=== PATIENT | female | born 1985 | race American Indian/Alaskan Native ===

== ENCOUNTER 2019-07-02 11:44 | Outpatient (CLI) | payer OTHER ==
[2019-07-02 12:56] VITALS: BP 99/56
[2019-07-02 13:31] LABS: Amphetamine Screen,Urine PRESUMPTIVE NEGATIVE; Bacteria,Urine 1+ /HPF (Negative); Bilirubin,Urine NEG (Negative); Blood,Urine NEG (Negative); Color,Urine Yellow (Yellow); Mucus,Urine 1+ /HPF; Protein,Urine <15 mg/dL mg/dL (Negative); Urobilinogen,Urine < 2.0 mg/dL (<2.0)
[2019-07-02 13:32] LABS: Benzodiazepines Screen,Urine PRESUMPTIVE NEGATIVE; Cocaine Screen,Urine PRESUMPTIVE NEGATIVE; Methadone Screen,Urine PRESUMPTIVE NEGATIVE; Opiate Screen,Urine PRESUMPTIVE NEGATIVE
[2019-07-02 13:34] LABS: HCG Qualitative,Urine Positive (Negative)
[2019-07-02 13:43] LABS: Cannabinoid Screen,Urine PRESUMPTIVE POSITIVE
--- NOTE | 2019-07-02 15:55 | Ultrasound Report ---
ULTRASOUND OBSTETRIC INDICATION / CLINICAL INFORMATION: No care.. Clinical Gestational Age (GA): TECHNIQUE: Transabdominal. COMPARISON: None available. FINDINGS: There is a single intrauterine . Biparietal Diameter = 5.5 cm = 22 weeks, 6 day(s). Head Circumference = 20.2 cm = 22 weeks, 6 day(s). Abdominal Circumference = 17.5 cm = 22 weeks, 3 day(s). Femur Length = 3.9 cm = 22 weeks, 5 day(s). Average Ultrasound Age (AUA) = 22 weeks, 5 day(s). Heart Rate: 158 beats per minute. Estimated Weight in grams (if calculated): 515 g Estimated Weight Growth Percentile (if calculated): Position: cephalic. Cervix: closed. Length in cm (if measured): Placenta: anterior and free of the os. Amniotic Fluid Volume: normal survey: Stomach, kidneys, urinary bladder, diaphragm, four-chamber heart, three-vessel cord were noted Maternal Adnexa: No significant abnormality. IMPRESSION: 1. Single, living intrauterine with estimated sonographic age of 22 weeks, 5 day(s). 2. Limited visualization of the spine. Signer Name: Hi Campoverde MD Signed: 07/02/2019 3:51 PM Workstation Name: [id number]
[2019-07-02 16:56] LABS: Basophils # (Auto) 0.1 K/mm3 (0.0-0.1); Basophils % (Auto) 0.5 % (0.0-1.8); Eosinophils # (Auto) 0.1 K/mm3 (0.0-0.4); Eosinophils % (Auto) 1.1 % (0.0-4.3); Hematocrit 32.2 % (30.3-42.9); Hemoglobin 10.6 gm/dl (10.1-14.3); Lymphocytes # (Auto) 2.2 K/mm3 (1.2-5.4); Lymphocytes % (Auto) 19.1 % (13.4-35.0); Mean Corpuscular HGB Conc 33 % (30-34); Mean Corpuscular Volume 88 fl (79-97); Monocytes # (Auto) 0.6 K/mm3 (0.0-0.8); Monocytes % (Auto) 5.7 % (0.0-7.3); Platelet Count 213 K/mm3 (140-440); Red Blood Count 3.65 M/mm3 (3.65-5.03)
[2019-07-02 17:29] LABS: Hepatitis C Virus Antibody Non-Reactive (NonReactive)
== END 2019-07-02 16:53 | disposition home or self-care (01) ==
LOC: ED 11:44 → TRG 12:22 → EDSTATUS 12:26 → TRG 12:29
PROVIDERS: ATTEND Obstetrics & Gynecology
DX: O26.892 Other specified pregnancy related conditions, second trimester (principal); R10.9 Unspecified abdominal pain; Z3A.22 22 weeks gestation of pregnancy
CPT/HCPCS: 36415; 76805; 80307; 81001; 81025; 85025; 86592; 86706; 86762; 86803; 87086; 87806

== ENCOUNTER 2020-01-26 09:47 | Emergency (ER) | payer MEDICAID, OTHER ==
[2020-01-26 10:09] VITALS: BP 107/73
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
== END 2020-01-26 15:26 | disposition home or self-care (01) ==
LOC: ED 09:47
DX: S39.012A Strain of muscle, fascia and tendon of lower back, initial encounter (principal); S16.1XXA Strain of muscle, fascia and tendon at neck level, initial encounter; R10.9 Unspecified abdominal pain; J45.909 Unspecified asthma, uncomplicated; Z79.899 Other long term (current) drug therapy; V49.49XA Driver injured in collision with other motor vehicles in traffic accident, initial encounter; Y92.410 Unspecified street and highway as the place of occurrence of the external cause; Y93.89 Activity, other specified; Y99.8 Other external cause status
CPT/HCPCS: 72040; 72100; 74019